=== PATIENT | female | born 1975 | race Caucasian/White ===

== ENCOUNTER → 2018-04-29 | Outpatient (REF) | payer OTHER, MEDICAID ==
[2018-04-29 15:50] LABS: ALBUMIN 3.9 GM/DL (3.2-5.2); ALBUMIN/GLOBULIN RATIO 1.34 (1.00-1.93); ALKALINE PHOSPHATASE 72 U/L (45-117); ALT/SGPT 30 U/L (12-78); ANION GAP 7 MEQ/L (8-16); AST/SGOT 14 U/L (7-37); BILIRUBIN,TOTAL 0.5 MG/DL (0.2-1.0); BLOOD UREA NITROGEN 11 MG/DL (7-18); CALCIUM LEVEL 8.1 MG/DL (8.5-10.1); CARBON DIOXIDE LEVEL 27 MEQ/L (21-32); CHLORIDE LEVEL 107 MEQ/L (98-107); CHOLESTEROL LEVEL 146 MG/DL (<200); CREATININE FOR GFR 0.48 MG/DL (0.55-1.30); GLOMERULAR FILTRATION RATE > 60.0 (>58); GLUCOSE, FASTING 88 MG/DL (70-100); HDL CHOLESTEROL 40 MG/DL (>40); LDL CHOLESTEROL 82.6 MG/DL (<100); NON-HDL-C 106 MG/DL; SODIUM LEVEL 141 MEQ/L (136-145); THYROID STIMULATING HORMONE 0.589 uIU/ML (0.358-3.740); TOTAL PROTEIN 6.8 GM/DL (6.4-8.2); TRIGLYCERIDES LEVEL 117 MG/DL (<150)
== END ==
LOC: M SFHCLACO 08:23
DX: I10 Essential (primary) hypertension (principal); Z68.35 Body mass index [BMI] 35.0-35.9, adult; G43.109 Migraine with aura, not intractable, without status migrainosus
CPT/HCPCS: 84443

== ENCOUNTER → 2019-03-11 | Outpatient (CLI) | payer OTHER ==
--- NOTE | 2019-03-11 09:44 | REPMRS ---
Patient History The patient states she has not had a clinical breast exam in over a year. Patient is nulliparous. Family history of unknown cancer at age 62 in maternal grandfather. 3D TOMOSYNTHESIS WAS PERFORMED. Digital Mammo Screening Bilat: March 11, 2019 - Exam #: [id number] Bilateral CC and MLO view(s) were taken. Technologist: Tequila Romero, Technologist No prior studies available for comparison. FINDINGS: The breast tissue is heterogeneously dense. This may lower the sensitivity of mammography. There is no evidence of cancer on this mammogram. Assessment: BI-RADS/ACR category 2 mammogram. Benign Findings. Recommendation Routine screening mammogram of both breasts in 1 year (for women over age 40). This mammogram was interpreted with the aid of an FDA-approved computer-aided dectection system. Electronically Signed By: Yair Ruiz MD 03/11/19 0943
== END ==
LOC: M RAD 08:07
PROVIDERS: ATTEND Physician Assistant
DX: Z12.31 Encounter for screening mammogram for malignant neoplasm of breast (principal)

== ENCOUNTER → 2019-08-13 | Outpatient (REF) | payer OTHER, MEDICAID ==
[~2019-08-13] MED LIST: KEFL500C17 PO; LISI-542; NORC1TAB7 PO
[2019-08-13 13:13] LABS: ALBUMIN 4.5 GM/DL (3.2-5.2); ALT/SGPT 38 U/L (12-78); BILIRUBIN,TOTAL 0.4 MG/DL (0.2-1.0); BLOOD UREA NITROGEN 16 MG/DL (7-18); CARBON DIOXIDE LEVEL 25 MEQ/L (21-32); CHLORIDE LEVEL 107 MEQ/L (98-107); CREATININE FOR GFR 0.58 MG/DL (0.55-1.30); GLOMERULAR FILTRATION RATE > 60.0 (>58); GLUCOSE, FASTING 90 MG/DL (70-100); POTASSIUM SERUM 3.8 MEQ/L (3.5-5.1); SODIUM LEVEL 139 MEQ/L (136-145); TOTAL PROTEIN 7.5 GM/DL (6.4-8.2)
== END ==
LOC: M SFHCADAM 08:23
PROVIDERS: ATTEND Physician Assistant
DX: I10 Essential (primary) hypertension (principal); Z68.35 Body mass index [BMI] 35.0-35.9, adult

== ENCOUNTER 2019-08-18 15:10 | Emergency (ER) | payer MEDICAID, OTHER ==
[2019-08-18] MEDS ORDERED: LISI-542 (15:18)
[2019-08-18] MEDS ORDERED: KETOROLAC 60 MG/2 ML VIAL (J1885) IM ONE (16:30)
[2019-08-18] MEDS ORDERED: NORCO, ANEXSIA 5/325MG TABLET (HYDROcodone/ACETAMINOPHEN) PO ONE (16:30)
[2019-08-18] MEDS ORDERED: diphenhydrAMINE 25 MG CAP PO ONE (16:30)
--- NOTE | 2019-08-18 16:35 | REP ---
Clinical: Crush injury. Technique: AP, lateral, bilateral oblique views of the right second and third digits. Findings: Second digit demonstrates soft tissue injury to the terminal tuft along with nondisplaced fracture through the distal phalanx and small fracture fragment or foreign body material. Third digit demonstrates soft tissue injury / laceration without obvious underlying fracture. Impression: Injury to the second and third distal phalanges and overlying soft tissues Electronically Signed by Shane Rodriguez MD 08/18/2019 04:26 P
[2019-08-18] MEDS ORDERED: ADACEL/BOOSTRIX VACCINE (DIPHTH/PERTUSS/ACELL/TETANUS)0.5ML SYR (90715) IM ONE (17:00)
[2019-08-18] MEDS ORDERED: LIDOCAINE 1% MDV 20ML VIAL SC ONE (17:15)
[2019-08-18] MEDS ORDERED: ceFAZolin SOD 2 GM in IV 1 EA IV ONE (17:15)
[2019-08-18] MEDS ORDERED: BUPIVACAINE HCL 0.5% 30 ML VIAL SC ONE (20:15)
[2019-08-18 20:32] VITALS: BP 141/89
[2019-08-18] MEDS ORDERED: KEFL500C17 PO (20:45)
[2019-08-18] MEDS ORDERED: CEPHALEXIN 500 MG CAP PO ONE ×2 (20:45)
[2019-08-18] MEDS ORDERED: NORCO 5/325MG TABLET (BULK FOR ED) PO ONE (20:45)
[2019-08-18] MEDS ORDERED: NORC1TAB7 PO (20:45)
--- NOTE | 2019-08-19 13:30 | ER ---
CONSULTATION AND PROCEDURE NOTE DATE OF CONSULTATION AND PROCEDURE: 08/18/2019 INDICATION: Right index and long finger crush injuries. HISTORY OF PRESENT ILLNESS: Cindy is a 43-year-old [id number] female who presents with crush injuries to the index and long finger when she was trying to attach the trailer hitch to her truck. She had immediate pain and open wounds. She came to the emergency room (ER) where her tetanus was updated, and she received intravenous (IV) cefazolin. The ER physician fundraising assistant (DONELL) irrigated and flushed both lacerations. X-rays revealed a fracture in the distal phalanx of the index finger. No obvious fractures in the long finger. The patient denies numbness or tingling. PAST MEDICAL HISTORY: Is noncontributory. PAST SURGICAL HISTORY: Noncontributory. MEDICATIONS: None. ALLERGIES: No known drug allergies. SOCIAL HISTORY: The patient lives with her partner. They moved up here from [place], and they own a food truck, as they make cupcakes and other baked goods. REVIEW OF SYSTEMS: The patient denies neurologic, cardiac, pulmonary, abdominal symptoms. PHYSICAL EXAMINATION: Reveals a female who is in mild discomfort. She is alert and oriented times three. Appropriate mood and affect. She is very pleasant to talk to. Cardiovascular: 2+ radial pulse. Pulmonary: Nonlabored breathing. Skin: Inspection of both the index and long finger of the right hand reveal open traumatic wounds. Inspection of the long finger reveals a laceration at the ulnar aspect of the distal phalanx, which is deep with a somewhat displaced flap. However, becomes very superficial as it approaches the appendicular fold. No nailbed involvement. The finger is warm and well-perfused. It is pink. Examination of the index finger reveals a more extensive laceration, which has resulted in nailbed injury with some splintering of the nail. The wound extends from the nail, then around to the volar aspect. X-rays: Three views of the right hand from the ER reveal a soft tissue injury to the long finger. It reveals a very mildly displaced fracture in the distal phalanx of the index finger. There is either a bony fragment or a foreign body seen. ASSESSMENT AND PLAN: Cindy has a right hand crush injury resulting in a long finger complex laceration and in index finger open distal phalanx fracture with nailbed injury. I had recommended immediate updating of tetanus and IV antibiotics to the ER PA, recommended she was discharged on a week of antibiotics, and I agreed to come in and treat the patient definitively. I recommended irrigation and debridement with laceration repair, to include a nailbed repair. Risks and benefits of the procedure were discussed. Written informed consent was obtained. PROCEDURE NOTE: After a time-out was performed per hospital protocol, I injected both the long and index fingers with 1% lidocaine per digital block technique after the skin was sterilely prepped. Additionally, field block was performed with some additional lidocaine. Once adequate analgesia was obtained, I then sterilely prepped the entire hand and wrist with Betadine and created a sterile field with sterile OR towels. I then proceeded with irrigation and debridement. An 11 blade was used, as well as tenotomy scissors, to remove several areas of devitalized tissue. No foreign bodies encountered. I first proceeded with a laceration repair of the long finger. 4-0 nylon in simple fashion was placed to reapproximate all skin edges. Next, attention was turned to the nailbed repair of the index finger. First, an 11 blade was used to remove the nail. There was a complex stellate laceration to the nailbed, primarily three pieces. 6-0 chromic was then used to perform a repair, and none of the nailbed had to be removed. Next, the laceration was repaired with 4-0 nylon. Lastly, the lips of foil from the 6-0 chromic suture pack which was sterile was cut into the shape of a nail, and then that was placed to splint the appendicular fold open, and then that was sutured in place with 6-0 chromic. I should have mentioned I used a finger tourniquet on the index finger during the nailbed repair. Then, that was released as soon as the suturing was finished with excellent reperfusion the both digits. After cleaning both fingers in the hand, I then injected 0.5% Marcaine with epinephrine for a long-acting anesthetic. A sterile dressing and a nonadhesive Adaptic were placed over the lacerations. Bulky sterile dressing was applied, and then I placed her into a volar resting splint in the intrinsic plus position, which was a fiberglass splint. She tolerated the procedure well. All counts correct times two. Complications none. She will follow up in 3 days with the PA for a wound check, suture removal at 12-14 days.
== END 2019-08-18 20:55 | disposition home or self-care (01) ==
LOC: M ED 15:10
DX: S62.630B Displaced fracture of distal phalanx of right index finger, initial encounter for open fracture (principal); S61.212A Laceration without foreign body of right middle finger without damage to nail, initial encounter; W23.0XXA Caught, crushed, jammed, or pinched between moving objects, initial encounter; Y92.093 Driveway of other non-institutional residence as the place of occurrence of the external cause; I10 Essential (primary) hypertension; Z88.5 Allergy status to narcotic agent; Z91.040 Latex allergy status; Z79.899 Other long term (current) drug therapy; Z23 Encounter for immunization
CPT/HCPCS: 11010; 11760; 12002; 73140; 90471; 90715; 96372; 96374; 99284; J0690; J1885

== ENCOUNTER → 2019-12-16 | Outpatient (REF) | payer OTHER, MEDICAID ==
[2019-12-16 13:18] LABS: ALBUMIN 4.3 GM/DL (3.2-5.2); ALT/SGPT 50 U/L (12-78); BILIRUBIN,TOTAL 0.4 MG/DL (0.2-1.0); BLOOD UREA NITROGEN 10 MG/DL (7-18); CALCIUM LEVEL 9.3 MG/DL (8.5-10.1); CARBON DIOXIDE LEVEL 30 MEQ/L (21-32); CHLORIDE LEVEL 104 MEQ/L (98-107); CHOLESTEROL LEVEL 206 MG/DL (<200); CHOLESTEROL RISK RATIO 4.039 (<5); GLOMERULAR FILTRATION RATE > 60.0 (>58); GLUCOSE, FASTING 111 MG/DL (70-100); HDL CHOLESTEROL 51 MG/DL (>40); LDL CHOLESTEROL 122 MG/DL (<100); NON-HDL-C 155 MG/DL; POTASSIUM SERUM 4.4 MEQ/L (3.5-5.1); SODIUM LEVEL 139 MEQ/L (136-145); TOTAL PROTEIN 7.7 GM/DL (6.4-8.2); TRIGLYCERIDES LEVEL 167 MG/DL (<150)
== END ==
LOC: M SFHCADAM 10:29
PROVIDERS: ATTEND Physician Assistant
DX: I10 Essential (primary) hypertension (principal); Z68.35 Body mass index [BMI] 35.0-35.9, adult; G43.109 Migraine with aura, not intractable, without status migrainosus

== ENCOUNTER → 2021-01-12 | Outpatient (REF) | payer OTHER, MEDICAID ==
[~2021-01-12] MED LIST changes: -LISI-542; +LISI-898
[2021-01-12 13:34] LABS: ALBUMIN 4.2 GM/DL (3.2-5.2); ALT/SGPT 26 U/L (12-78); BILIRUBIN,TOTAL 0.3 MG/DL (0.2-1.0); BLOOD UREA NITROGEN 13 MG/DL (7-18); CALCIUM LEVEL 9.1 MG/DL (8.5-10.1); CARBON DIOXIDE LEVEL 30 MEQ/L (21-32); CHLORIDE LEVEL 108 MEQ/L (98-107); CHOLESTEROL LEVEL 182 MG/DL (<200); CREATININE FOR GFR 0.46 MG/DL (0.55-1.30); GLOMERULAR FILTRATION RATE > 60.0 (>58); GLUCOSE, FASTING 97 MG/DL (70-100); HDL CHOLESTEROL 52 MG/DL (>40); LDL CHOLESTEROL 112 MG/DL (<100); NON-HDL-C 130 MG/DL; POTASSIUM SERUM 5.2 MEQ/L (3.5-5.1); SODIUM LEVEL 142 MEQ/L (136-145); TOTAL PROTEIN 6.9 GM/DL (6.4-8.2); TRIGLYCERIDES LEVEL 90 MG/DL (<150)
== END ==
LOC: M SFHCADAM 10:38
PROVIDERS: ATTEND Physician Assistant
DX: I10 Essential (primary) hypertension (principal); Z68.35 Body mass index [BMI] 35.0-35.9, adult; E78.2 Mixed hyperlipidemia

== ENCOUNTER → 2021-06-02 | Outpatient (REF) | payer OTHER, MEDICAID | LOC: M SFHCADAM 14:37 | PROVIDERS: ATTEND Family Medicine | DX: R50.9 Fever, unspecified (principal) ==

== ENCOUNTER → 2021-08-07 | Outpatient (CLI) | payer OTHER | LOC: M LABSMTC 11:24 | PROVIDERS: ATTEND Pediatrics | DX: Z11.52 Encounter for screening for COVID-19 (principal) ==

== ENCOUNTER → 2022-01-04 | Outpatient (CLI) | payer OTHER ==
[~2022-01-04] MED LIST changes: -LISI-898; +LISI5TAB11
== END ==
LOC: M PLARAD 10:23
PROVIDERS: ATTEND Physician Assistant
DX: M51.26 Other intervertebral disc displacement, lumbar region (principal)

== ENCOUNTER → 2022-02-07 | Outpatient (CLI) | payer OTHER, MEDICAID ==
[2022-02-07 11:26] LABS: BLOOD UREA NITROGEN 15 MG/DL (7-18); CALCIUM LEVEL 9.2 MG/DL (8.5-10.1); CARBON DIOXIDE LEVEL 26 MEQ/L (21-32); CHLORIDE LEVEL 108 MEQ/L (98-107); CREATININE FOR GFR 0.49 MG/DL (0.55-1.30); GLOMERULAR FILTRATION RATE > 60.0 (>58); GLUCOSE, FASTING 98 MG/DL (70-100); POTASSIUM SERUM 4.6 MEQ/L (3.5-5.1); SODIUM LEVEL 141 MEQ/L (136-145)
== END ==
LOC: M PLALAB 08:59
PROVIDERS: ATTEND Internal Medicine Cardiovascular Disease
DX: R00.2 Palpitations (principal)

== ENCOUNTER → 2022-02-07 | Outpatient (CLI) | payer OTHER, MEDICAID ==
[2022-02-07 11:22] LABS: HEMOGLOBIN A1c 5.2 %
[2022-02-07 11:36] LABS: ALBUMIN 4.2 GM/DL (3.2-5.2); ALT/SGPT 38 U/L (12-78); BILIRUBIN,TOTAL 0.2 MG/DL (0.2-1.0); BLOOD UREA NITROGEN 14 MG/DL (7-18); CALCIUM LEVEL 8.8 MG/DL (8.5-10.1); CARBON DIOXIDE LEVEL 27 MEQ/L (21-32); CHLORIDE LEVEL 109 MEQ/L (98-107); CHOLESTEROL LEVEL 186 MG/DL (<200); CHOLESTEROL RISK RATIO 3.444 (<5); CREATININE FOR GFR 0.58 MG/DL (0.55-1.30); FREE T4 0.74 NG/DL (0.76-1.46); GLOMERULAR FILTRATION RATE > 60.0 (>58); GLUCOSE, FASTING 94 MG/DL (70-100); HDL CHOLESTEROL 54 MG/DL (>40); LDL CHOLESTEROL 110 MG/DL (<100); NON-HDL-C 132 MG/DL; POTASSIUM SERUM 4.6 MEQ/L (3.5-5.1); SODIUM LEVEL 140 MEQ/L (136-145); THYROID STIMULATING HORMONE 0.564 uIU/ML (0.358-3.740); TOTAL PROTEIN 7.2 GM/DL (6.4-8.2); TRIGLYCERIDES LEVEL 108 MG/DL (<150)
[2022-02-07 11:37] LABS: TOTAL 25(OH) VITAMIN D 21.6 NG/ML (30.0-100.0)
[2022-02-07 11:39] LABS: CREATININE, URINE 50.4 MG/DL; MALB URINE SIEMENS 21.2 MG/L
== END ==
LOC: M PLALAB 09:02
PROVIDERS: ATTEND Physician Assistant
DX: I10 Essential (primary) hypertension (principal); E78.5 Hyperlipidemia, unspecified

== ENCOUNTER → 2022-04-25 | Outpatient (CLI) | payer OTHER, MEDICAID | LOC: M LAB 11:44 | PROVIDERS: ATTEND Physician Assistant | DX: S89.91XA Unspecified injury of right lower leg, initial encounter (principal); X50.9XXA Other and unspecified overexertion or strenuous movements or postures, initial encounter; Y92.9 Unspecified place or not applicable ==

== ENCOUNTER → 2022-05-25 | Outpatient (CLI) | payer OTHER, MEDICAID | LOC: M PAIN 13:30 | PROVIDERS: ATTEND Nurse Practitioner Family | DX: M54.42 Lumbago with sciatica, left side (principal); I10 Essential (primary) hypertension; E66.9 Obesity, unspecified; R51.9 Headache, unspecified; E78.2 Mixed hyperlipidemia; E87.5 Hyperkalemia; E55.9 Vitamin D deficiency, unspecified; Z87.891 Personal history of nicotine dependence; Z79.891 Long term (current) use of opiate analgesic; Z79.899 Other long term (current) drug therapy; Z88.5 Allergy status to narcotic agent; Z91.040 Latex allergy status; Z68.35 Body mass index [BMI] 35.0-35.9, adult ==

== ENCOUNTER → 2022-07-23 | Outpatient (CLI) | payer MEDICAID, OTHER ==
[~2022-07-23] MED LIST changes: +LISI10TA22 PO; +LORA-674 PO; +MELA10CA2 PO; +VITA200010 PO; +VITATAB73 PO
== END ==
LOC: M LABSMTC 09:39
PROVIDERS: ATTEND Anesthesiology
DX: Z01.812 Encounter for preprocedural laboratory examination (principal); Z20.822 Contact with and (suspected) exposure to COVID-19

== ENCOUNTER 2022-07-26 10:16 | Day surgery (SDC) | payer OTHER ==
[~2022-07-26] VITALS: Ht 160 cm; Wt 89.4 kg
[~2022-07-26 10:16] MED LIST changes: +NS 1,000 ML IV ONE
[2022-07-26] MEDS ORDERED: LIDOCAINE 2% 100MG/5ML SDV (FOR ANES.) As Ordered ONE (13:42)
[2022-07-26] MEDS ORDERED: propofoL 200 MG/20 ML VIAL As Ordered ONE (13:42)
[2022-07-26 14:15] VITALS: BP 142/87
== END 2022-07-26 14:27 | disposition home or self-care (01) ==
LOC: M OPP 10:16
PROVIDERS: ATTEND Internal Medicine Gastroenterology
DX: Z12.11 Encounter for screening for malignant neoplasm of colon (principal); Z86.010 Personal history of colon polyps; K64.8 Other hemorrhoids; K57.30 Diverticulosis of large intestine without perforation or abscess without bleeding; Z79.899 Other long term (current) drug therapy; Z88.0 Allergy status to penicillin; Z88.5 Allergy status to narcotic agent; Z91.040 Latex allergy status; Z91.048 Other nonmedicinal substance allergy status; I10 Essential (primary) hypertension; G43.909 Migraine, unspecified, not intractable, without status migrainosus; Z87.891 Personal history of nicotine dependence; Z80.8 Family history of malignant neoplasm of other organs or systems; Z80.1 Family history of malignant neoplasm of trachea, bronchus and lung

== ENCOUNTER 2023-04-03 12:10 | Emergency (ER) | payer OTHER, MEDICAID ==
[~2023-04-03] VITALS: Ht 160 cm; Wt 95.4 kg
[~2023-04-03 12:10] MED LIST changes: -NS 1,000 ML IV ONE
[2023-04-03 12:54] LABS: APPEARANCE, URINE CLEAR (CLEAR); BACTERIA, URINE AUTO NEGATIVE (NEGATIVE); BILIRUBIN, URINE AUTO NEGATIVE (NEGATIVE); BLOOD, URINE BLOOD 2+ (NEGATIVE); COLOR, URINE STRAW (YELLOW); GLUCOSE, URINE (UA) AUTO NEGATIVE (NEGATIVE); KETONE, URINE AUTO NEGATIVE (NEGATIVE); LEUKOCYTE ESTERASE, URINE AUTO NEGATIVE (NEGATIVE); NITRITE, URINE AUTO NEGATIVE (NEGATIVE); PROTEIN, URINE AUTO NEGATIVE (NEGATIVE); RBC, URINE AUTO 1 /HPF (0-3); SPECIFIC GRAVITY URINE AUTO 1.011 (1.002-1.035); SQUAMOUS EPITHELIAL CELL UR AU 0 /HPF (0-6); UROBILINOGEN, URINE AUTO 0.2 mg/dL (0.0-2.0); WBC, URINE AUTO 0 /HPF (0-3)
[2023-04-03] MEDS ORDERED: NAPR-837 PO (13:53)
[2023-04-03 14:00] VITALS: BP 140/94; TEMP 97.1; O2SAT 96
== END 2023-04-03 14:05 | disposition home or self-care (01) ==
LOC: M ED 12:10
DX: S46.911A Strain of unspecified muscle, fascia and tendon at shoulder and upper arm level, right arm, initial encounter (principal); S13.4XXA Sprain of ligaments of cervical spine, initial encounter; S50.01XA Contusion of right elbow, initial encounter; W10.8XXA Fall (on) (from) other stairs and steps, initial encounter; Y92.89 Other specified places as the place of occurrence of the external cause; Y93.01 Activity, walking, marching and hiking; Y99.0 Civilian activity done for income or pay; Z88.5 Allergy status to narcotic agent; Z91.040 Latex allergy status; Z79.899 Other long term (current) drug therapy

== ENCOUNTER → 2023-10-25 | Outpatient (REF) | payer MEDICAID ==
[~2023-10-25] MED LIST changes: +LORA-1041 PO; -LORA-674 PO; +NAPR-837 PO
[2023-10-25 13:39] LABS: BASO % 0.2 % (0.0-1.0); EOS # 0.3 10^3/uL (0.0-0.5); EOS % 3.1 % (0.0-3.0); HEMATOCRIT 39.2 % (36.0-47.0); HEMOGLOBIN 12.7 g/dl (12.0-15.5); LYMPH # 2.7 10^3/uL (1.5-5.0); LYMPH % 31.8 % (24.0-44.0); MEAN CORPUSCULAR HGB CONC 32.4 g/dl (32.0-36.5); MEAN CORPUSCULAR VOLUME 92.7 fl (80.0-96.0); MONO # 0.5 10^3/uL (0.0-0.8); MONO % 5.8 % (2.0-8.0); NEUTROPHILS % 58.9 % (36.0-66.0); PLATELET COUNT, AUTOMATED 262 10^3/uL (150-450); RED BLOOD COUNT 4.23 10^6/uL (4.00-5.40); WHITE BLOOD COUNT 8.5 10^3/uL (4.0-10.0)
[2023-10-25 13:43] LABS: HEMOGLOBIN A1c 5.7 % (4.0-6.0)
[2023-10-25 14:01] LABS: ALBUMIN 4.2 G/DL (3.2-5.2); ALKALINE PHOSPHATASE 75 U/L (46-116); ALT/SGPT 26 U/L (7.0-40); AST/SGOT 13 U/L (<34); BILIRUBIN,TOTAL 0.3 MG/DL (0.3-1.2); BLOOD UREA NITROGEN 15 MG/DL (9-23); CALCIUM LEVEL 9.3 MG/DL (8.5-10.1); CARBON DIOXIDE LEVEL 30 MMOL/L (20-31); CHLORIDE LEVEL 105 MMOL/L (98-107); CHOLESTEROL LEVEL 187 MG/DL (<200); CHOLESTEROL RISK RATIO 3.08 (<5); CREATININE FOR GFR 0.59 MG/DL (0.55-1.30); GLOMERULAR FILTRATION RATE > 60.0 (>58); GLUCOSE, FASTING 103 MG/DL (60-100); HDL CHOLESTEROL 60.6 MG/DL (>40); NON-HDL-C 126.4 MG/DL; POTASSIUM SERUM 4.2 MMOL/L (3.5-5.1); SODIUM LEVEL 139 MMOL/L (136-145); TOTAL PROTEIN 7.1 G/DL (5.7-8.2); TRIGLYCERIDES LEVEL 107 MG/DL (<150)
[2023-10-25 14:05] LABS: TOTAL 25(OH) VITAMIN D 68.3 NG/ML (20.0-100.0)
[2023-10-25 14:06] LABS: FREE T4 0.95 NG/DL (0.89-1.76); THYROID STIMULATING HORMONE 0.554 uIU/ML (0.55-4.78)
== END ==
LOC: M SFHCADAM 10:53
PROVIDERS: ATTEND Physician Assistant
DX: I10 Essential (primary) hypertension (principal); E78.2 Mixed hyperlipidemia; E55.9 Vitamin D deficiency, unspecified; G43.109 Migraine with aura, not intractable, without status migrainosus; Z68.38 Body mass index [BMI] 38.0-38.9, adult

== ENCOUNTER → 2024-01-29 | Outpatient (REF) | payer OTHER, MEDICAID ==
[2024-01-29 18:39] LABS: BLOOD UREA NITROGEN 9 MG/DL (9-23); CARBON DIOXIDE LEVEL 29 MMOL/L (20-31); CHLORIDE LEVEL 106 MMOL/L (98-107); CREATININE FOR GFR 0.51 MG/DL (0.55-1.30); GLOMERULAR FILTRATION RATE > 60.0 (>58); GLUCOSE, FASTING 87 MG/DL (60-100); MAGNESIUM LEVEL 2.2 MG/DL (1.8-2.4); POTASSIUM SERUM 4.4 MMOL/L (3.5-5.1); SODIUM LEVEL 142 MMOL/L (136-145)
[2024-01-29 18:40] LABS: FREE T4 1.05 NG/DL (0.89-1.76)
== END ==
LOC: M SFHCADAM 11:20
PROVIDERS: ATTEND Physician Assistant
DX: I48.0 Paroxysmal atrial fibrillation (principal)

== ENCOUNTER → 2024-09-03 | Outpatient (CLI) | payer OTHER | LOC: M WHC 10:53 | PROVIDERS: ATTEND Nurse Practitioner Family | DX: Z12.31 Encounter for screening mammogram for malignant neoplasm of breast (principal) ==

== ENCOUNTER → 2024-09-03 | Outpatient (REF) | payer OTHER, MEDICAID | LOC: M SFHCWAGY 17:54 | PROVIDERS: ATTEND Nurse Practitioner Family | DX: Z12.4 Encounter for screening for malignant neoplasm of cervix (principal) ==

== ENCOUNTER → 2025-01-06 | Outpatient (REF) | payer OTHER, MEDICAID ==
[2025-01-06 18:10] LABS: BASO % 0.2 % (0.0-1.0); EOS # 0.4 10^3/uL (0.0-0.5); EOS % 4.4 % (0.0-3.0); HEMOGLOBIN 13.6 g/dl (12.0-15.5); LYMPH % 33.4 % (24.0-44.0); MEAN CORPUSCULAR HEMOGLOBIN 29.9 pg (27.0-33.0); MEAN CORPUSCULAR HGB CONC 32.4 g/dl (32.0-36.5); MEAN CORPUSCULAR VOLUME 92.3 fl (80.0-96.0); MONO # 0.7 10^3/uL (0.0-0.8); MONO % 7.3 % (2.0-8.0); NEUTROPHILS # 4.9 10^3/uL (1.5-8.5); NEUTROPHILS % 54.5 % (36.0-66.0); PLATELET COUNT, AUTOMATED 265 10^3/uL (150-450); RED BLOOD COUNT 4.55 10^6/uL (4.00-5.40); WHITE BLOOD COUNT 9.1 10^3/uL (4.0-10.0)
[2025-01-06 18:44] LABS: ALBUMIN 4.6 G/DL (3.2-5.2); ALKALINE PHOSPHATASE 72 U/L (35-104); ALT/SGPT 63 U/L (7.0-40); AST/SGOT 32 U/L (<34); BILIRUBIN,TOTAL 0.4 MG/DL (0.3-1.2); BLOOD UREA NITROGEN 11 MG/DL (9-23); CALCIUM LEVEL 9.8 MG/DL (8.5-10.1); CARBON DIOXIDE LEVEL 29 MMOL/L (20-31); CHLORIDE LEVEL 104 MMOL/L (98-107); CHOLESTEROL LEVEL 207 MG/DL (<200); CHOLESTEROL RISK RATIO 3.64 (<5); CREATININE FOR GFR 0.51 MG/DL (0.55-1.30); FREE T4 0.92 NG/DL (0.89-1.76); GLOMERULAR FILTRATION RATE > 60.0 (>58); GLUCOSE, FASTING 92 MG/DL (60-100); HDL CHOLESTEROL 56.8 MG/DL (>40); MAGNESIUM LEVEL 2.1 MG/DL (1.8-2.4); NON-HDL-C 150.2 MG/DL; POTASSIUM SERUM 4.4 MMOL/L (3.5-5.1); SODIUM LEVEL 142 MMOL/L (136-145); THYROID STIMULATING HORMONE 0.747 uIU/ML (0.55-4.78); TOTAL PROTEIN 7.8 G/DL (5.7-8.2); TRIGLYCERIDES LEVEL 156 MG/DL (<150)
[2025-01-06 18:45] LABS: TOTAL 25(OH) VITAMIN D 42.4 NG/ML (20.0-100.0)
[2025-01-06 19:12] LABS: HEMOGLOBIN A1c 5.5 % (4.0-6.0)
== END ==
LOC: M SFHCADAM 12:08
PROVIDERS: ATTEND Physician Assistant
DX: Z00.00 Encounter for general adult medical examination without abnormal findings (principal); R00.2 Palpitations; E78.2 Mixed hyperlipidemia; I48.0 Paroxysmal atrial fibrillation; I11.9 Hypertensive heart disease without heart failure; E55.9 Vitamin D deficiency, unspecified; Z11.59 Encounter for screening for other viral diseases

== ENCOUNTER → 2025-09-13 | Outpatient (CLI) | payer OTHER ==
[~2025-09-13] MED LIST changes: +CVS10CAP8 PO; -MELA10CA2 PO
== END ==
LOC: M WHC 09:46
PROVIDERS: ATTEND Nurse Practitioner Family
DX: Z12.31 Encounter for screening mammogram for malignant neoplasm of breast (principal)